=== PATIENT | female | born 1965 | race Hispanic/Latino ===

== ENCOUNTER 2024-11-07 10:29 | Emergency (ER) | payer OTHER ==
[~2024-11-07] VITALS: Ht 137.2 cm; Wt 59.0 kg
--- NOTE | 2024-11-07 11:24 | ERN ---
ED Note History of Present Illness Stated Complaint: RT LOW BACK PAIN Chief Complaint: Back Pain-No Injury Time Seen by MD: 10:58 Time Seen by Midlevel: 11:10 Dictation: Ms. Green is a 59-year-old female with history of type 2 diabetes, hypertension, hyperlipidemia, and diverticulitis who presented to the emergency department this morning for evaluation of dysuria. She reports three days of right low back pain accompanied by frequent urination and one episode of diarrhea. She states that she has pain with bending and when she takes a deep breath. The pain is worse in the AM when she wakes and improves somewhat after she is up and moving. She denies history of similar symptoms. She denies having fever, chills, abdominal pain, nausea, vomiting, hematuria, headache, or dizziness. She denies trauma. She states her blood glucose levels have been well controlled. PCP: Dr. 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 EYES: Patient denies any visual symptoms. EARS, NOSE, AND THROAT: No difficulties with hearing. No symptoms of rhinitis or sore throat. CARDIOVASCULAR: Patient denies chest pains, palpitations, orthopnea and paroxysmal nocturnal dyspnea. RESPIRATORY: No dyspnea on exertion, no wheezing or cough. GI: No nausea, vomiting, constipation, abdominal pain, hematochezia or melena. Reports one episode of diarrhea : No urinary hesitancy or dribbling. No nocturia. . No abnormal urethral discharge. Reports right low back pain and frequent urination MUSCULOSKELETAL: No myalgias or arthralgias. NEUROLOGIC: No chronic headaches, no seizures. Patient denies numbness, tingling or weakness. PSYCHIATRIC: Patient denies problems with mood disturbance. No problems with anxiety. ENDOCRINE: No excessive urination or excessive thirst. DERMATOLOGIC: Patient denies any rashes or skin changes. Initial Vital Sign VS Vital Signs Date Time Temp Pulse Resp B/P (MAP) Pulse Ox O2 Delivery O2 Flow Rate FiO2 11/07/24 10:32 96.6 79 20 165/90 99 Room Air 11/07/24 10:48 0 21 Physical Exam Dictation Vital signs: Reviewed. Afebrile Constitutional: No acute distress. Non-toxic appearing. Head/Face: Normocephalic, atraumatic. Eyes: Periorbital areas with no swelling, redness, or edema. Lids and lashes are normal. Conjunctival injection is absent. Sclera anicteric. Pupils equal, round, reactive to light. ENT: Pinnas intact and no signs of trauma or erythema. Ear canals clear and no discharge. TMs no erythema. No nasal discharge or bleeding noted. Oropharynx with no exudate, redness, swelling, masses, exudates, or evidence of obstruction. Uvula midline. Mucous membranes moist. Neck: Trachea midline, no masses palpated, and no cervical lymphadenopathy. No swelling. Supple, full range of motion. Chest/Axilla: No tenderness, no crepitus, no paradoxical movement, no retractions. Cardiovascular: Regular rate, regular rhythm, no murmur, no gallops. Symmetric pulses. No peripheral edema. Respiratory: Respirations even and unlabored. Lung sounds clear; no wheezes, rales or rhonchi. Room air SpO2 98% Gastrointestinal: Inspection is normal. No distention is appreciated. Bowel sounds are normal. No mass or organomegaly . There is no tenderness. No rebound. No rigidity. No voluntary or involuntary guarding. No Williamson's sign. : urine is cloudy/yellow. Negative CVA tenderness bilaterally. Neurological: Normal speech, gross motor function intact, gross sensory function intact. No focal weakness/Paresthesia. Musculoskeletal/Extremities: All extremities have full range of motion, no pain or tenderness on palpation. Symmetric pulses. Integumentary: Intact. Skin is normal color, warm and dry. Cap refill less than 3 seconds. Results (Laboratory/Radiology) Laboratory/Radiology Laboratory Tests Test 11/07/24 10:45 Urine Color COLORLESS (YELLOW) Urine Appearance CLEAR (CLEAR) Urine pH 5.0 (5.0-8.0) Urine Specific [place] 1.013 (1.001-1.031) Urine Protein NEGATIVE mg/dL (NEGATIVE) Urine Glucose (UA) >=1000 mg/dL (NEGATIVE) H Urine Ketones NEGATIVE mg/dL (NEGATIVE) Urine Occult Blood NEGATIVE (NEGATIVE) Urine Nitrate NEGATIVE (NEGATIVE) Urine Bilirubin NEGATIVE mg/dL (NEGATIVE) Urine Urobilinogen 0.2 mg/dL (0.2-1.0) Urine Leukocyte Esterase NEGATIVE Stacey/uL Urine RBC 0-1 /HPF (0-1) Urine WBC 2-5 /HPF (0-1) H Urine Squamous Epithelial Cells RARE /HPF (0-2) Urine Bacteria None /HPF (None Seen) Labs Reviewed?: Yes X-RAY Comment: X-ray of the lumbar spine with no concerning findings. No fracture/dislocation. Noted stool burden. As interpreted by myself and ED Course ED Course Orders Procedure Category Date Status Time Urinalysis Profile LAB 11/07/24 Complete 10:35 Lumbar Spine 2-3vws RAD 11/07/24 Taken 12:16 Vital Signs Date Time Temp Pulse Resp B/P (MAP) Pulse Ox O2 Delivery O2 Flow Rate FiO2 11/07/24 10:48 98.1 76 16 165/85 98 Room Air* 0 21 11/07/24 10:32 96.6 79 20 165/90 99 Room Air Uneventful ED course. Continues with right low back pain. She had urinalysis which was negative for infection or blood. X-ray of the lumbar spine showed no fracture or dislocation/concerning findings. It did show a significant stool burden contributing to her symptoms. She was advised to increase her fluid intake at home as well as take [id number] senna and MiraLax. She received doses Toradol and a Flexeril. She will follow up with her primary care physician. Medical Decision Making MDM MDM: Differential diagnosis: Muscle strain, UTI, lumbar spine fracture. Rationale: Tests considered and ordered secondary to shared decision making include: UA, x-ray lumbar spine Previous outside records reviewed: Old ER visits. Risk of complication and/or morbidity or mortality of patient management: None Medications-Per medication reconciliation Need for hospitalization: Patient does not meet criteria for hospitalization. Need for emergency major/minor surgery: No There are no social concerns with this patient. Prescription drug management: Flexeril, ibuprofen, MiraLax, OTC senna Prescriptions will include symptomatic care Patient's prior external medical records from other ER visits were reviewed by me as indicated. Prior testing and results from previous visits were reviewed. Prior tests were taken into account with medical decision making and resource utilization, independent historian/historians were used to obtain complete medical history. I independently interpreted the test that were performed, results were reviewed by me and considered findings on radiology if ordered. Medical management and examination interpretation discussions were had by me with other qualified healthcare professionals as indicated for the patient's care. DX & DISP Disposition: Discharge Departure Impression: Primary Impression: Lumbar spine strain Additional Impressions: Constipation, Back pain Condition: Stable Scripts Polyethylene Glycol 3350 (Miralax) 17 Gram Powd.pack 1 PACKET PO DAILY for constipation for 5 Days, #5 PACKET 0 Refills dissolve in water Prov: ROSEANN WEINSTEIN NP 11/07/24 Ibuprofen (Ibuprofen) 600 Mg Tablet 600 MG PO q8 hours PRN PRN for PAIN, #15 TAB 0 Refills Prov: ROSEANN WEINSTEIN NP 11/07/24 Cyclobenzaprine HCl (Cyclobenzaprine HCl) 5 Mg Tablet 5 MG PO [id number], #12 TAB 0 Refills Prov: ROSEANN WEINSTEIN NP 11/07/24 Additional Instructions: You need to drink more fluids. Increase the fiber in your diet. Take [id number] senna twice daily. Take prescription MiraLax once daily. May take Flexeril 5 mg every 12 hours as needed for back pain/spasm. Ibuprofen 600 mg Q 8 hours as needed for pain. Follow up with your primary care physician in the next 2-3 days. Return to the emergency department if any worsening of symptoms or concerns Referrals: SELF,REFERRAL (PCP) Time of Disposition: 16:10 ROSEANN WEINSTEIN NP Nov 07, 2024 11:24
[2024-11-07 11:55] LABS: ADD UA MICROSCOPIC YES; APPEARANCE,URINE CLEAR (CLEAR); BILIRUBIN,URINE NEGATIVE (NEGATIVE); COLOR,URINE COLORLESS (YELLOW); GLUCOSE, URINE (UA) >=1000 mg/dL (NEGATIVE); KETONES,URINE NEGATIVE (NEGATIVE); LEUKOCYTE ESTERASE ,URINE NEGATIVE Leu/uL (NEGATIVE); NITRATE,URINE NEGATIVE (NEGATIVE); OCCULT BLOOD,URINE NEGATIVE (NEGATIVE); PROTEIN,URINE NEGATIVE (NEGATIVE); UROBILINOGEN,URINE 0.2 mg/dL (0.2-1.0)
[2024-11-07 11:56] LABS: MUCUS,URINE RARE LPF (None Seen); RBC,URINE 0-1 /HPF (0-1); SQUAMOUS EPITHELIAL CELL,UR RARE /HPF (0-2)
[2024-11-07] MEDS ORDERED: IBUP-2070 PO (16:06)
[2024-11-07] MEDS ORDERED: CYCL5TAB3 PO (16:06)
[2024-11-07] MEDS ORDERED: POLY17PO4 PO (16:10)
[2024-11-07 16:14] VITALS: BP 160/82; PULSE 75; RESP 16; TEMP 98.3; O2SAT 98
[2024-11-07] MEDS: CYCLOBENZAPRINE HCL 10 MG TABLET PO ONE (16:16)
[2024-11-07] MEDS: ketOROlac 30MG VIAL (30MG/ML) IM ONE (16:16)
--- NOTE | 2024-11-07 16:40 | HMCIMG ---
EXAM: LUMBAR SPINE 2-3VWS CLINICAL HISTORY: right low back pain COMPARISON:None. TECHNIQUE: AP lateral and L5-S1 spot images of the lumbar spine were obtained. FINDINGS: There is straightening of the normal lumbar lordosis. On the AP image there is a mild scoliotic curvature with mild bony osteophyte production. There is no identified fractures. Soft tissue appears unremarkable. IMPRESSION: Mild degenerative changes. Straightening of the normal lumbar lordosis suggesting positioning or muscle spasm.
== END 2024-11-07 16:26 | disposition home or self-care (01) ==
LOC: EDH 10:29
DX: S39.012A Strain of muscle, fascia and tendon of lower back, initial encounter (principal); K59.00 Constipation, unspecified; E11.9 Type 2 diabetes mellitus without complications; E78.00 Pure hypercholesterolemia, unspecified; X58.XXXA Exposure to other specified factors, initial encounter; Y93.89 Activity, other specified; Y92.89 Other specified places as the place of occurrence of the external cause; Y99.8 Other external cause status
CPT/HCPCS: 99284; 81001; 72100; 96372; J1885; 99283